=== PATIENT | female | born 1965 | race Caucasian/White ===

== ENCOUNTER 2016-08-21 13:43 | Emergency (ER) | payer OTHER ==
[~2016-08-21] VITALS: Ht 176.5 cm; Wt 96.1 kg
[2016-08-21 13:45] VITALS: TEMP 36.8; Ht 176.5 cm; Wt 96.1 kg
[2016-08-21] MEDS ORDERED: ONDANSETRON INJ 2 MG/ML 2 ML VIAL IV STA (14:18)
[2016-08-21] MEDS ORDERED: SODIUM CHLORIDE 0.9% 1000ML 1,000 ML IV STA ×2 (14:18)
[2016-08-21 14:29] LABS: BASO % 0.5 %; BASO ABS # 0.05 K/uL (0-0.2); COMPLETE YES; HEMATOCRIT 42.1 % (37-47); IG% 0.5 %; LYMPH % 27.9 %; LYMPH ABS # 2.69 K/uL (1.2-3.4); MEAN CELL VOLUME 86.3 fL (80-100); MEAN CORPUSCULAR HEMOGLOBIN 30.1 pg (25-34); MEAN CORPUSCULAR HGB CONC 34.9 g/dl (32-36); MEAN PLATELET VOLUME 9.9 fL (7.4-10.4); MONO % 4.4 %; NEUT % 63.7 %; PLATELET COUNT 372 K/uL (130-400); RED BLOOD COUNT 4.88 M/uL (4.2-5.4); WHITE BLOOD COUNT 9.65 K/uL (4.8-10.8)
[2016-08-21 14:38] LABS: PREG INTERNAL NEGATIVE QC NEG CLEAR BACKGROUND; PREG INTERNAL POSITIVE QC POS CONTROL LINE
[2016-08-21 14:41] LABS: URINE APPEARANCE CLEAR (CLEAR); URINE BILIRUBIN NEG (NEG); URINE COLOR YELLOW; URINE EPITHELIAL CELL AUTO >30 /lpf (0-5); URINE NITRITE NEG (NEG); URINE PH 7.5 (4.5-7.5); URINE SPECIFIC GRAVITY 1.011 (1.000-1.030); UROBILINOGEN NEG (NEG)
[2016-08-21 14:44] LABS: MANUAL MICROSCOPIC REQUIRED? NO; REVIEW REQ? NO
[2016-08-21 14:52] LABS: BUN/CREATININE RATIO 8.8 (10-20); CREATININE 0.8 mg/dl (0.60-1.20); POTASSIUM 3.6 mmol/L (3.5-5.1)
[2016-08-21 14:55] LABS: ALB/GLOB RATIO 0.8 (0.9-2)
--- NOTE | 2016-08-21 15:16 | DIAGNOSTIC IMAGING REPORT ---
KUB CLINICAL HISTORY: LEFT FLANK PAIN AND HEMATURIA COMPARISON STUDY: No previous studies for comparison. FINDINGS: There is no pathologic bowel dilatation. Projected over the left L3 transverse process are 2 tangential calcifications measuring 8 mm in aggregate. In the setting of left flank pain, these could represent proximal left ureteral calculi. Clinical correlation is advocated. A confirmatory CT scan could be obtained as deemed clinically indicated. IMPRESSION: 1. No evidence of pathologic bowel dilatation 2. Tangential calcifications projected over the left L3 transverse process. In the setting of left flank pain, these could represent a proximal left ureteral calculi Electronically signed by: Dao Hull M.D. 08/21/2016 3:15 PM Dictated Date/Time: 08/21/2016 3:13 PM
--- NOTE | 2016-08-21 15:18 | DIAGNOSTIC IMAGING REPORT ---
EXAMINATION: RENAL ULTRASOUND CLINICAL HISTORY: LEFT FLANK PAIN AND HEMATURIA COMPARISON STUDY: None FINDINGS: The right kidney measures 11.3 cm. The left kidney measures 7.7 cm. There is no evidence of hydronephrosis. There are no renal masses. No bladder abnormalities are visualized. Bilateral ureteral jets were visualized. IMPRESSION : Normal renal ultrasound. Electronically signed by: Dao Hull M.D. 08/21/2016 3:17 PM Dictated Date/Time: 08/21/2016 3:16 PM
--- NOTE | 2016-08-21 15:38 | EMERGENCY ROOM VISIT NOTE ---
ED Visit Note First contact with patient: 13:50 CHIEF COMPLAINT: Left flank pain and nausea yesterday HISTORY OF PRESENT ILLNESS: Patient is a 51-year-old white female who generally enjoys good health, who presents emergency department accompanied by her for evaluation of an episode of left flank pain yesterday afternoon. Patient states that yesterday she generally did not feel well. She noted a mild headache, and generally just felt poorly. In the afternoon, she developed some pain and her left flank, with associated nausea. She also had some loose stools at that time, and thought that the pain could be related to gas. She denies any changes in the pain with bowel movements. She states the pain was intermittent in nature, and steadily escalated throughout the afternoon , at its worst she would've rated it an 8/10. She states that she had difficulty getting comfortable due to the pain. She tried taking ibuprofen and increasing her water intake, and eventually she was able to lay down and find a position that was comfortable with she fell asleep for a couple of hours, and when she woke up she was pain-free. She does note during that time that the color of her urine was "off." She denies any dysuria, frequency, urgency or mickey hematuria. The patient continued to use ibuprofen every 6 hours throughout the evening, more so because she felt feverish, however does admit to still having some residual left flank aching. Today when she woke up, she still had some slight pain and again felt feverish although she did not check her temperature with a thermometer. She did note gross blood when she urinated today. She called her primary care providers weekend clinic, and is set up for an appointment for tomorrow, but they were nursing staff she spoke with recommended she come to the emergency department today for evaluation as they were concerned regarding pyelonephritis versus kidney stone. The patient at the present time denies any pain, rating her discomfort a 0/10, does still admit to some nausea. She has been drinking water today but has not had much to eat. She denies any melena or hematochezia. She did not vomit. Last menstrual period was about 2 weeks ago and was normal. She does not have a history of kidney stones. She has been under some increased stress recently with the passing of her father. REVIEW OF SYSTEMS: Review of systems as per HPI. All other systems reviewed were negative. 10 systems reviewed. PMH: Electronic medical records are reviewed and summarized as above/below. See Problem List. SOCIAL HISTORY: Patient lives at home with her and children. She is self-employed. Positive tobacco use. PHYSICAL EXAM: Vital Signs: Reviewed Nurse's notes. CONSTITUTIONAL: Patient is a well-appearing 51-year-old white female who is awake and alert and seated upright on the gurney in no acute distress. EYES: Pupils equal, round, reactive to light and accommodation. EOMs intact without nystagmus. Sclera are anicteric. ENT: Tympanic membranes intact, with normal landmarks. External canals are clear. Oral and nasopharynx are clear. Mucous membranes are moist, no lesions , tongue and gums appear normal. CARDIOVASCULAR: Regular rate and rhythm, with normal S1 and S2, no murmur or gallop or rub is heard. No carotid bruits auscultated. No JVD. Peripheral pulses easily palpable. RESPIRATORY: Breath sounds equal and clear to auscultation without wheezes, rales, or rhonchi heard. Full and equal chest expansion without accessory muscle use or retractions. ABDOMEN: Bowel sounds are present. Well-healed surgical scars are noted. Abdomen is soft, nondistended, not significantly tender to palpation throughout. There is no guarding or rebound tenderness. INTEGUMENTARY: Hirsute. No lesions or rash, normal skin turgor. LYMPH: No lymphadenopathy. EMERGENCY DEPARTMENT COURSE: Urine dip noted 250 of blood, test was negative. Given the patient's symptoms and hematuria noted on urine dip, I was highly suspicious for kidney stone/renal colic. Treatment options were discussed with the patient. IV lock was initiated. She was hydrated with normal saline solution, and was agreeable to Zofran IV for nausea. She declined any medication for discomfort. CBC, CMP and urine microscopy were ordered. Given that she is pain-free, KUB and retroperitoneal ultrasounds were performed. Patient's laboratory studies noted a normal white count of 9600, no left shift. H&H is normal. Laboratory studies noted no electrolyte imbalance. Renal function is normal. Liver functions are not elevated. Urine microscopy again notes 3+ occult blood and greater than 30 RBCs. Small amount leuk esterase, 5- 10 WBCs and greater than 30 epithelial cells. No nitrates, no bacteria, therefore felt to be unlikely infectious. KUB noted an aggregate 8mm calcification over the left L3 transverse process that could indicate a proximal left ureteral calculi, retroperitoneal ultrasound however did not demonstrate any shadowing calculi or hydronephrosis, and bilateral jets were noted. If there truly was an 8 mm renal ureteral calculi, I would expect to see some residual hydronephrosis. Nonetheless, the patient has been nearly pain-free for almost 24 hours at this point. Given this and the normal laboratory studies, I did discuss performing CT scan with her, however felt that she could be treated conservatively for a presumed left- sided kidney stone, possibly which has already passed. The patient did feel better with the IV fluids and Zofran. Supportive care measures were discussed. She was encouraged to push oral fluids and to use Tylenol and ibuprofen if needed for discomfort. Certainly if her symptoms should return, she was encouraged to return to the emergency department, at which point she will likely require further workup, and possibly CT scan. She expressed understanding of this and was agreeable. Differential diagnoses entertained included UTI, pyelonephritis, renal colic, diverticulitis, hernia, ovarian cyst, ovarian torsion, mass or malignancy, viral illness, among others. Medication reconciliation: I attest that I have personally reviewed the patient' s current medication list. Blood pressure screening : Patient was found to have normal blood pressure on screening and does not require follow-up. KUB CLINICAL HISTORY: LEFT FLANK PAIN AND HEMATURIA COMPARISON STUDY: No previous studies for comparison. FINDINGS: There is no pathologic bowel dilatation. Projected over the left L3 transverse process are 2 tangential calcifications measuring 8 mm in aggregate. In the setting of left flank pain, these could represent proximal left ureteral calculi. Clinical correlation is advocated. A confirmatory CT scan could be obtained as deemed clinically indicated. IMPRESSION: 1. No evidence of pathologic bowel dilatation 2. Tangential calcifications projected over the left L3 transverse process. In the setting of left flank pain, these could represent a proximal left ureteral calculi EXAMINATION: RENAL ULTRASOUND CLINICAL HISTORY: LEFT FLANK PAIN AND HEMATURIA COMPARISON STUDY: None FINDINGS: The right kidney measures 11.3 cm. The left kidney measures 7.7 cm. There is no evidence of hydronephrosis. There are no renal masses. No bladder abnormalities are visualized. Bilateral ureteral jets were visualized. IMPRESSION : Normal renal ultrasound. Problem List Medical Problems: (1) Tobacco abuse Status: Chronic Surgical Problems: (1) History of appendectomy Status: Resolved (2) History of hernia repair Status: Resolved Allergies Coded Allergies: Phenylbutazone (Verified Allergy, Severe, 03/21/09) PHENYLBUTAZONE ALLERGY IS RASH- PT HAS TAKEN MOTRIN WITHOUT PROBLEMS PER DANIEL IN L&D Uncoded Allergies: BUTAZOLADINE (Allergy, Unknown, 03/29/02) N (Allergy, Unknown, 03/29/02) NKA (Allergy, Unknown, 03/29/02) NKFA (Allergy, Unknown, 03/29/02) Vital Signs Date Time Temp Pulse Resp B/P (MAP) Pulse Ox O2 Delivery O2 Flow Rate FiO2 08/21/16 13:45 36.8 107 18 134/70 97 Room Air Laboratory Results 08/21/16 14:20 Red Blood Count 4.88, Mean Corpuscular Volume 86.3, Mean Corpuscular Hemoglobin 30.1, Mean Corpuscular Hemoglobin Concent 34.9, Mean Platelet Volume 9.9, Neutrophils (%) (Auto) 63.7, Lymphocytes (%) (Auto) 27.9, Monocytes (%) (Auto) 4.4, Eosinophils (%) (Auto) 3.0, Basophils (%) (Auto) 0.5, Neutrophils # (Auto) 6.15, Lymphocytes # (Auto) 2.69, Monocytes # (Auto) 0.42, Eosinophils # (Auto) 0.29, Basophils # (Auto) 0.05 08/21/16 14:20 Test 08/21/16 14:04 08/21/16 14:20 Urine Color YELLOW Urine Appearance CLEAR (CLEAR) Urine pH 7.5 (4.5-7.5) Urine Specific [place] 1.011 (1.000-1.030) Urine Protein NEG (NEG) Urine Glucose (UA) NEG (NEG) Urine Ketones NEG (NEG) Urine Occult Blood 3+ (NEG) Urine Nitrite NEG (NEG) Urine Bilirubin NEG (NEG) Urine Urobilinogen NEG (NEG) Urine Leukocyte Esterase SMALL (NEG) Urine WBC (Auto) 5-10 /hpf (0-5) Urine RBC (Auto) >30 /hpf (0-4) Urine Hyaline Casts (Auto) 1-5 /lpf (0-5) Urine Epithelial Cells (Auto) >30 /lpf (0-5) Urine Bacteria (Auto) NEG (NEG) Urine Test NEG (NEG) White Blood Count 9.65 K/uL (4.8-10.8) Red Blood Count 4.88 M/uL (4.2-5.4) Hemoglobin 14.7 g/dL (12.0-16.0) Hematocrit 42.1 % (37-47) Mean Corpuscular Volume 86.3 fL (80-100) Mean Corpuscular Hemoglobin 30.1 pg (25-34) Mean Corpuscular Hemoglobin Concent 34.9 g/dl (32-36) Platelet Count 372 K/uL (130-400) Mean Platelet Volume 9.9 fL (7.4-10.4) Neutrophils (%) (Auto) 63.7 % Lymphocytes (%) (Auto) 27.9 % Monocytes (%) (Auto) 4.4 % Eosinophils (%) (Auto) 3.0 % Basophils (%) (Auto) 0.5 % Neutrophils # (Auto) 6.15 K/uL (1.4-6.5) Lymphocytes # (Auto) 2.69 K/uL (1.2-3.4) Monocytes # (Auto) 0.42 K/uL (0.11-0.59) Eosinophils # (Auto) 0.29 K/uL (0-0.5) Basophils # (Auto) 0.05 K/uL (0-0.2) RDW Standard Deviation 42.6 fL (36.4-46.3) RDW Coefficient of Variation 13.4 % (11.5-14.5) Immature Granulocyte % (Auto) 0.5 % Immature Granulocyte # (Auto) 0.05 K/uL (0.00-0.02) Anion Gap 9.0 mmol/L (3-11) Est Creatinine Clear Calc Drug Dose 101.2 ml/min Estimated GFR () 97.6 Estimated GFR (Non- 84.2 BUN/Creatinine Ratio 8.8 (10-20) Calcium Level 9.0 mg/dl (8.5-10.1) Total Bilirubin 0.3 mg/dl (0.2-1) Aspartate Amino Transf (AST/SGOT) 12 U/L (15-37) Alanine Aminotransferase (ALT/SGPT) 21 U/L (12-78) Alkaline Phosphatase 93 U/L (45-117) Total Protein 7.8 gm/dl (6.4-8.2) Albumin 3.5 gm/dl (3.4-5.0) Globulin 4.3 gm/dl (2.5-4.0) Albumin/Globulin Ratio 0.8 (0.9-2) Medications Administered Medications (Trade) Dose Ordered Sig/Vivian Route Start Time Stop Time Status Last Admin Dose Admin Sodium Chloride 1,000 ml @ 999 mls/hr Q1H1M STAT IV 08/21/16 14:18 08/21/16 15:18 DC 08/21/16 14:30 999 MLS/HR Ondansetron HCl (Zofran Inj) 4 mg NOW STAT IV 08/21/16 14:18 08/21/16 14:21 DC 08/21/16 14:33 4 MG Departure Information Impression Primary Impression: Left flank pain Additional Impression: Hematuria Referrals Jaiden Alba M.D. (PCP) Patient Instructions [facility] Additional Instructions Ibuprofen(Motrin, Advil) may be used for fever or pain. Use 600mg every six hours as needed. Take with food. Avoid using more than 2400mg in a 24 hour period. Do not use 2400mg per day for more than three consecutive days without physician direction. Prolonged inappropriate use can lead to stomach upset or ulcers. This medication can be taken if you need to drive, work, or perform activities which may be dangerous when taking narcotic pain medication. (AND/OR) Acetaminophen(Tylenol) may be used for fever or pain. Use 1000mg every six hours as needed. Avoid using more than 4000mg in a 24 hour period. This medication can be taken if you need to drive, work, or perform activities which may be dangerous when taking narcotic pain medication. Rest and avoid strenuous activity until your stone passes and symptoms resolve. Drink plenty of fluids. Continue current medications. Return to the ER for worsening abdominal or back pain, vomiting, fevers, passing out, or as needed. Follow up with your primary care physician this week for recheck. Problem Qualifiers
[2016-08-21 15:42] VITALS: BP 114/83; PULSE 63; O2SAT 94
== END 2016-08-21 15:46 | disposition home or self-care (01) ==
LOC: C.EDB 13:45 → C.EDC 15:46
DX: R10.9 Unspecified abdominal pain (principal); R31.9 Hematuria, unspecified; R11.0 Nausea; F17.200 Nicotine dependence, unspecified, uncomplicated

== ENCOUNTER 2016-09-02 09:28 | Emergency (ER) | payer OTHER ==
[~2016-09-02] VITALS: Ht 175.3 cm; Wt 96.0 kg
[2016-09-02 09:33] VITALS: TEMP 36.5; Ht 175.3 cm; Wt 96.0 kg
[2016-09-02] MEDS ORDERED: KETOROLAC TROMETHAMINE 30 MG/ML VIAL IV STA (09:52)
[2016-09-02] MEDS ORDERED: ONDANSETRON INJ 2 MG/ML 2 ML VIAL IV PRN (10:00)
--- NOTE | 2016-09-02 10:27 | EMERGENCY ROOM VISIT NOTE ---
History Report prepared by Ruth: Tammy Ramos Under the Supervision of: Dr. Remi Hernández M.D. First contact with patient: 09:44 Chief Complaint: FLANK PAIN Stated Complaint: THINK I AM PASSING A KIDNEY STONE History of Present Illness The patient is a 51 year old female who presents to the Emergency Room with complaints of intermittent left-sided flank pain for the past two weeks. She was seen in the ED on 08/21 for these symptoms and had a KUB that showed a possible kidney stone. The patient did not want a CT at that time. She has been drinking fluids and taking ibuprofen to manage her symptoms at home. She states that over the past few days her pain has moved from her left flank into her left groin. She also reports pain and pressure in her bladder. The patient notes increased urinary frequency and urgency. She feels like she is unable to fully empty her bladder. She is currently complaining of nausea. She rates her current pain as a 7/10 in severity. The patient has had kidney stones in the past and states that it feels like she is passing a kidney stone. She currently has her period her was using tampons, which she states exacerbated her suprapubic abdominal pain and pressure. The patient denies fever and chills. Source of History: patient Onset: 2 weeks ago Position: other (left flank) Symptom Intensity: 7/10 Quality: pressure Timing: intermittent Modifying Factors (Worsening): other (using tampons) Modifying Factors (Relieving): ibuprofen Associated Symptoms: + nausea, + urinary symptoms, No fevers, No chills Review of Systems All systems have been listed, reviewed, and are negative other than those previously mentioned. Please see Additional Medical History Sheet. Past Medical & Surgical Medical Problems: (1) Tobacco abuse Surgical Problems: (1) History of appendectomy (2) History of hernia repair Family History Cancer Social History Smoking Status: Current Every Day Smoker Marital Status: Housing Status: lives with family Current/Historical Medications Scheduled Ondasetron Odt (Zofran Odt), 4 MG SL Q6H Tamsulosin Hcl (Flomax), 0.4 MG PO DAILY Scheduled PRN Ibuprofen Tab (Motrin), 600 MG PO Q6H PRN for Pain Allergies Coded Allergies: Phenylbutazone (Verified Allergy, Severe, 03/21/09) PHENYLBUTAZONE ALLERGY IS RASH- PT HAS TAKEN MOTRIN WITHOUT PROBLEMS PER DANIEL IN L&D Uncoded Allergies: BUTAZOLADINE (Allergy, Unknown, 03/29/02) Physical Exam Vital Signs Date Time Temp Pulse Resp B/P (MAP) Pulse Ox O2 Delivery O2 Flow Rate FiO2 09/02/16 13:05 76 15 113/55 97 Room Air 09/02/16 11:26 70 16 120/88 97 Room Air 09/02/16 09:33 36.5 96 18 133/86 98 Room Air Physical Exam GENERAL: Patient awake, alert, oriented x 3. Patient follows commands. Patient does not appear toxic. Patient is adequately hydrated and well- nourished. SKIN: No erythema, pallor, cyanosis or rash HEENT: Normal head, pupils equal, reactive to light and accommodation. Oral cavity and posterior pharynx appear normal. Neck: Without adenopathy, no neck vein distention. LUNGS: Clear to auscultation. No wheezes, no rales, no rhonchi. HEART: No murmurs. No gallops. No rubs ABDOMEN: Patient has some vague suprapubic pain and vague left flank pain. No masses, no rebound, no hepatomegaly or splenomegaly. EXTREMITIES: No signs of trauma or infection. NEUROLOGIC: Cranial nerves II-XII within normal limits. No gross motor sensory function deficits. Medical Decision & Procedures ER Provider Diagnostic Interpretation: Radiology results as stated below per my review and radiologist interpretation: ABD/PELVIS WITHOUT FOR STONE HISTORY: 51 years Female left flank and pelvic pain COMPARISON: Renal ultrasound 08/21/2016 TECHNIQUE: Multiple axial CT images of the abdomen and pelvis were obtained without contrast. A dose lowering technique was used consistent with the principles of ALARA. FINDINGS: There is minimal dependent bibasilar atelectasis with subcentimeter left basilar calcified granuloma. No pneumoperitoneum. Inferior cardiac chambers are unremarkable. The liver, spleen, pancreas and right adrenal gland appear normal. Gallbladder is collapsed. There is a low attenuating 11 x 10 mm lesion of the left adrenal gland with Hounsfield unit of 10 compatible with adenoma. There is moderate amount of left-sided perinephric edema and mild asymmetric left renal enlargement compared to the right along with moderate left-sided obstructive uropathy secondary to a 6 x 3 x 5 mm calculus in the region of the left ureterovesicular junction. No additional obstructing renal calculi are identified. The right kidney and ureter appear normal. Urinary bladder is collapsed. Uterus and adnexa are within normal limits. There is a small sliding-type hiatal hernia. No bowel obstruction. Scattered noninflamed colonic diverticula are present. The appendix is not seen and may be surgically absent. Shoes are unremarkable. Enthesopathy noted at the right hamstring attachment site. Bones appear intact. IMPRESSION: 1. Moderate left-sided obstructive uropathy secondary to a 6 x 3 x 5 mm calculus at the left ureterovesicular junction. 2. Colonic diverticulosis without diverticulitis. 3. 11 mm left adrenal adenoma. 4. Small sliding-type hiatal hernia. The above report was generated using voice recognition software. It may contain grammatical, syntax or spelling errors. Electronically signed by: Chaparro Pham M.D. 09/02/2016 11:46 AM Dictated Date/Time: 09/02/2016 11:41 AM Laboratory Results 09/02/16 10:30 Red Blood Count 4.78, Mean Corpuscular Volume 86.6, Mean Corpuscular Hemoglobin 29.7, Mean Corpuscular Hemoglobin Concent 34.3, Mean Platelet Volume 10.2, Neutrophils (%) (Auto) 75.9, Lymphocytes (%) (Auto) 15.2, Monocytes (%) (Auto) 6.3, Eosinophils (%) (Auto) 1.8, Basophils (%) (Auto) 0.5, Neutrophils # (Auto) 8.22, Lymphocytes # (Auto) 1.64, Monocytes # (Auto) 0.68, Eosinophils # (Auto) 0.19, Basophils # (Auto) 0.05 09/02/16 10:30 Test 09/02/16 00:00 09/02/16 10:30 Urine Color YELLOW Urine Appearance CLEAR (CLEAR) Urine pH 5.5 (4.5-7.5) Urine Specific [place] <= 1.005 (1.000-1.030) Urine Protein NEG (NEG) Urine Glucose (UA) NEG (NEG) Urine Ketones NEG (NEG) Urine Occult Blood 3+ (NEG) Urine Nitrite NEG (NEG) Urine Bilirubin NEG (NEG) Urine Urobilinogen NEG (NEG) Urine Leukocyte Esterase NEG (NEG) Urine RBC 0-4 /hpf (0-4) Urine WBC 1-5 /hpf (0-5) Urine Epithelial Cells 20-30 /lpf (0-5) Urine Bacteria NEG (NEG) Urine Test NEG (NEG) White Blood Count 10.81 K/uL (4.8-10.8) Red Blood Count 4.78 M/uL (4.2-5.4) Hemoglobin 14.2 g/dL (12.0-16.0) Hematocrit 41.4 % (37-47) Mean Corpuscular Volume 86.6 fL (80-100) Mean Corpuscular Hemoglobin 29.7 pg (25-34) Mean Corpuscular Hemoglobin Concent 34.3 g/dl (32-36) Platelet Count 325 K/uL (130-400) Mean Platelet Volume 10.2 fL (7.4-10.4) Neutrophils (%) (Auto) 75.9 % Lymphocytes (%) (Auto) 15.2 % Monocytes (%) (Auto) 6.3 % Eosinophils (%) (Auto) 1.8 % Basophils (%) (Auto) 0.5 % Neutrophils # (Auto) 8.22 K/uL (1.4-6.5) Lymphocytes # (Auto) 1.64 K/uL (1.2-3.4) Monocytes # (Auto) 0.68 K/uL (0.11-0.59) Eosinophils # (Auto) 0.19 K/uL (0-0.5) Basophils # (Auto) 0.05 K/uL (0-0.2) RDW Standard Deviation 42.8 fL (36.4-46.3) RDW Coefficient of Variation 13.4 % (11.5-14.5) Immature Granulocyte % (Auto) 0.3 % Immature Granulocyte # (Auto) 0.03 K/uL (0.00-0.02) Anion Gap 7.0 mmol/L (3-11) Est Creatinine Clear Calc Drug Dose 73.0 ml/min Estimated GFR () 66.4 Estimated GFR (Non- 57.3 BUN/Creatinine Ratio 10.6 (10-20) Calcium Level 9.0 mg/dl (8.5-10.1) Laboratory results as stated above per my review. Medications Administered Medications (Trade) Dose Ordered Sig/Vivian Route Start Time Stop Time Status Last Admin Dose Admin Ketorolac Tromethamine (Toradol Inj) 30 mg NOW STAT IV 09/02/16 09:52 09/02/16 09:55 DC 09/02/16 11:21 30 MG Ondansetron HCl (Zofran Inj) 4 mg Q1HWA PRN IV 09/02/16 10:00 09/02/16 13:53 DC 09/02/16 11:19 4 MG ED Course 0944: Past medical records reviewed. The patient was evaluated in room B4B. A complete history and physical examination was performed. 0952: Toradol 30 mg IV 1000: Zofran 4 mg IV - PRN 1131: The patient is headed to CT at this time. 1201: I updated the patient on her results. She is resting more comfortably. 1210: I spoke with MATT Dickerson of urology. We discussed the patient's results and treatment plan. They will see the patient in the office for follow- up. 1241: I reassessed the patient at this time. She is feeling better and resting comfortably. I discussed the results and treatment plan with the patient. I answered all pertaining questions that she had. She expressed understanding and verbalized agreement. The patient will be discharged home. 1301: I discussed the patient's follow-up appointment options with her prior to her discharge. Medical Decision Differential diagnoses includes kidney stone, pyelonephritis, urinary tract infection, pelvic inflammatory disease. Multiple labs, urinalysis and imaging were performed. CT reveals a large ureterovesical junction stone. The patient has moderate hydronephrosis. I believe this is the source of her pain. The patient was given Toradol with moderate relief. She did not want opiates. Because the pain has been there for over 2 weeks and due to the size, I believe it is unlikely that she will pass this stone. The patient will be scheduled to see a urologist in the near future. She's to drink extra fluids. I started her on Flomax and Zofran. She is to take prescription strength ibuprofen. Medication Reconcilliation Current Medication List: was personally reviewed by me Blood Pressure Screening Patient's blood pressure: Normal blood pressure Blood pressure disposition: Did not require urgent referral Consults Time Called: 1207 Consulting Physician: MATT Dickerson Returned Call: 1210 I spoke with MATT Dickerson of urology. We discussed the patient's results and treatment plan. They will see the patient in the office for follow- up. Impression Primary Impression: Renal colic Scribe Attestation The scribe's documentation has been prepared under my direction and personally reviewed by me in its entirety. I confirm that the note above accurately reflects all work, treatment, procedures, and medical decision making performed by me. Departure Information Dispostion Home / Self-Care Prescriptions Ondasetron Odt (ZOFRAN ODT) 4 Mg Tab 4 MG SL Q6H for Nausea, #10 TAB Prov: Remi Hernández M.D. 09/02/16 Tamsulosin Hcl (FLOMAX) 0.4 Mg Cap 0.4 MG PO DAILY, #10 CAP Prov: Remi Hernández M.D. 09/02/16 Ibuprofen Tab (MOTRIN) 600 Mg Tab 600 MG PO Q6H Y for Pain, #30 TAB Prov: Remi Hernández M.D. 09/02/16 Referrals Jaiden Alba M.D. (PCP) Forms HOME CARE DOCUMENTATION FORM, IMPORTANT VISIT INFORMATION Patient Instructions ED Stone Renal W Colic, My [facility] Additional Instructions Follow-up with your family physician Tuesday morning and Dr. Corley later that day. 600 mg ibuprofen every 6 hours as needed for pain. 1 Flomax daily. Start today. 1 Zofran every 4 hours as needed for nausea. Drink extra fluids. Strain your urine. Return here if the pain is not controlled with ibuprofen.
[2016-09-02 10:34] LABS: MANUAL MICROSCOPIC REQUIRED? YES; URINE APPEARANCE CLEAR (CLEAR); URINE BILIRUBIN NEG (NEG); URINE COLOR YELLOW; URINE NITRITE NEG (NEG); URINE PH 5.5 (4.5-7.5); URINE SPECIFIC GRAVITY <= 1.005 (1.000-1.030); UROBILINOGEN NEG (NEG)
[2016-09-02 10:36] LABS: REVIEW REQ? NO
[2016-09-02 10:47] LABS: URINE BACTERIA NEG (NEG); URINE RBC 0-4 /hpf (0-4)
[2016-09-02 10:49] LABS: BASO % 0.5 %; BASO ABS # 0.05 K/uL (0-0.2); COMPLETE YES; EOS % 1.8 %; HEMATOCRIT 41.4 % (37-47); IG% 0.3 %; LYMPH % 15.2 %; LYMPH ABS # 1.64 K/uL (1.2-3.4); MEAN CELL VOLUME 86.6 fL (80-100); MEAN CORPUSCULAR HEMOGLOBIN 29.7 pg (25-34); MEAN CORPUSCULAR HGB CONC 34.3 g/dl (32-36); MEAN PLATELET VOLUME 10.2 fL (7.4-10.4); MONO % 6.3 %; NEUT % 75.9 %; PLATELET COUNT 325 K/uL (130-400); RED BLOOD COUNT 4.78 M/uL (4.2-5.4); WHITE BLOOD COUNT 10.81 K/uL (4.8-10.8)
[2016-09-02 10:51] LABS: ZZURINE CULT IF INDIC CATH NO
[2016-09-02 11:01] LABS: PREG INTERNAL NEGATIVE QC NEG CLEAR BACKGROUND; PREG INTERNAL POSITIVE QC POS CONTROL LINE
[2016-09-02 11:08] LABS: BUN/CREATININE RATIO 10.6 (10-20); CREATININE 1.1 mg/dl (0.60-1.20); POTASSIUM 3.8 mmol/L (3.5-5.1)
--- NOTE | 2016-09-02 11:48 | DIAGNOSTIC IMAGING REPORT ---
ABD/PELVIS WITHOUT FOR STONE HISTORY: 51 years Female left flank and pelvic pain COMPARISON: Renal ultrasound 08/21/2016 TECHNIQUE: Multiple axial CT images of the abdomen and pelvis were obtained without contrast. A dose lowering technique was used consistent with the principles of ALARA. FINDINGS: There is minimal dependent bibasilar atelectasis with subcentimeter left basilar calcified granuloma. No pneumoperitoneum. Inferior cardiac chambers are unremarkable. The liver, spleen, pancreas and right adrenal gland appear normal. Gallbladder is collapsed. There is a low attenuating 11 x 10 mm lesion of the left adrenal gland with Hounsfield unit of 10 compatible with adenoma. There is moderate amount of left-sided perinephric edema and mild asymmetric left renal enlargement compared to the right along with moderate left-sided obstructive uropathy secondary to a 6 x 3 x 5 mm calculus in the region of the left ureterovesicular junction. No additional obstructing renal calculi are identified. The right kidney and ureter appear normal. Urinary bladder is collapsed. Uterus and adnexa are within normal limits. There is a small sliding-type hiatal hernia. No bowel obstruction. Scattered noninflamed colonic diverticula are present. The appendix is not seen and may be surgically absent. Shoes are unremarkable. Enthesopathy noted at the right hamstring attachment site. Bones appear intact. IMPRESSION: 1. Moderate left-sided obstructive uropathy secondary to a 6 x 3 x 5 mm calculus at the left ureterovesicular junction. 2. Colonic diverticulosis without diverticulitis. 3. 11 mm left adrenal adenoma. 4. Small sliding-type hiatal hernia. The above report was generated using voice recognition software. It may contain grammatical, syntax or spelling errors. Electronically signed by: Chaparro Pham M.D. 09/02/2016 11:46 AM Dictated Date/Time: 09/02/2016 11:41 AM
[2016-09-02 13:05] VITALS: BP 113/55; PULSE 76; O2SAT 97
[2016-09-02] MEDS ORDERED: IBUP-1427 PO (13:05)
[2016-09-02] MEDS ORDERED: TAMS0.4C38 PO (13:06)
[2016-09-02] MEDS ORDERED: ONDA4TAB10 SL (13:09)
== END 2016-09-02 13:36 | disposition home or self-care (01) ==
LOC: C.EDB 09:30
DX: N23 Unspecified renal colic (principal); F17.200 Nicotine dependence, unspecified, uncomplicated